=== PATIENT | female | born 1990 | race Caucasian/White ===

== ENCOUNTER → 2023-05-31 14:24 | Outpatient (CLI) | payer OTHER, MEDICAID, SELFPAY ==
[2023-05-31 16:08] LABS: Add Manual Diff / Slide Review NO; Basophils Absolute Auto 100 /uL (0-100); Basophils Percent Auto 0.7 % (0-2); Eosinophils Absolute Auto 300 /uL (0-450); Eosinophils Percent Auto 3.6 % (2-4); Hematocrit 35.1 % (36-46); Lymphocytes Absolute Auto 2600 /uL (1100-4500); Lymphocytes Percent Auto 29.9 % (25-40); Mean Corpuscular HGB Conc 31.2 % (30-36); Mean Corpuscular Hemoglobin 21.4 PG (26-34); Mean Corpuscular Volume 68.4 fL (80-100); Monocytes Absolute Auto 700 /uL (0-900); Monocytes Percent Auto 7.7 % (3-14); Neutrophils Absolute Auto 5000 /uL (1500-7000); Neutrophils Percent Auto 58.1 % (50-75); Platelet Count 369 X10^3/uL (150-400); Red Blood Cell Count 5.14 X10^6/uL (4.0-5.2); Red Cell Distribution Width 18.4 % (11.6-14.8); White Blood Cell Count 8.7 X10^3/uL (4.5-11.0)
[2023-05-31 16:37] LABS: Alanine Aminotransferase 21 IU/L (<35); Albumin Globulin Ratio 1.1 (1.0-2.8); Alkaline Phosphatase 77 U/L (38-126); Aspartate Aminotransferase 27 IU/L (14-36); BUN Creatinine Ratio 12.9 (6-22); Bilirubin Total 0.6 mg/dL (0.2-1.3); Blood Urea Nitrogen 11 mg/dL (7-17); Calcium 8.8 mg/dL (8.4-10.2); Carbon Dioxide 20 mmol/L (22-32); Chloride 108 mmol/L (98-107); Estimated Glomerular Filt Rate > 60 mL/min (>60); Globulin 3.8 g/dL (1.7-4.1); Glucose 84 mg/dL (70-100); HEMOLYSIS < 15 (0-50); Potassium 3.8 mmol/L (3.4-5.1); Sodium 140 mmol/L (137-145); Total Protein 7.8 g/dL (6.3-8.2)
[2023-05-31 16:51] LABS: Anisocytosis 2+; Macrocytosis 1+; Microcytosis 2+
[2023-05-31 16:52] LABS: Hypochromasia 1+; Rouleaux 1+
[2023-05-31 16:53] LABS: Vitamin D 25 Hydroxy (D3) 32.4 ng/mL (30.0-100.0)
[2023-05-31 17:17] LABS: TSH w/ Reflex to FT4 0.91 uIU/mL (0.47-4.68)
[2023-06-01 12:31] LABS: HEMOLYSIS < 15 (0-50); Iron 41 ug/dL (37-170)
[2023-06-01 12:42] LABS: Percent Iron Saturation 10 % (15-50); Total Iron Binding Capacity 423 ug/dL (265-497); Transferrin 342 mg/dL (206-381)
[2023-06-01 13:39] LABS: Folate 8.9 ng/mL (2.76-20.0); Vitamin B12 403 pg/mL (239-931)
== END ==
PROVIDERS: PCP Family Medicine; Referring Provider Family Medicine; Visit Provider Family Medicine
DX: F32.A Depression, unspecified (principal)
CPT/HCPCS: 36415; 80053; 82306; 82607; 82746; 83540; 83550; 84443; 85025

== ENCOUNTER → 2023-07-27 14:16 | Outpatient (CLI) | payer OTHER, MEDICAID, SELFPAY ==
[2023-07-27 15:11] LABS: Hematocrit 37.6 % (36-46); Hemoglobin 12.3 g/dL (12.0-16.0); Mean Corpuscular HGB Conc 32.8 % (30-36); Mean Corpuscular Hemoglobin 24.8 PG (26-34); Mean Corpuscular Volume 75.6 fL (80-100); Platelet Count 313 X10^3/uL (150-400); Red Blood Cell Count 4.97 X10^6/uL (4.0-5.2); Red Cell Distribution Width 20.2 % (11.6-14.8); White Blood Cell Count 10.4 X10^3/uL (4.5-11.0)
[2023-07-27 15:28] LABS: Neutrophils Absolute Manual 5824 /uL (3000-5900); Total Cells Counted 100
[2023-07-27 15:29] LABS: Anisocytosis 1+; Microcytosis 1+
[2023-07-27 15:33] LABS: HEMOLYSIS < 15 (0-50); Iron 102 ug/dL (37-170)
[2023-07-27 15:47] LABS: Percent Iron Saturation 28 % (15-50); Total Iron Binding Capacity 363 ug/dL (265-497); Transferrin 273 mg/dL (206-381)
[2023-07-27 16:08] LABS: Ferritin 24 ng/mL (6-137)
[2023-07-28 16:55] LABS: HIV 1 & 2 Ab/Ag 4th Gen Combo NEGATIVE (NEGATIVE); Hep C Virus Ab w/Reflex Quant NEGATIVE s/c (NEGATIVE)
[2023-07-30 07:04] LABS: Hepatitis B Virus HBV DNA not detected IU/mL (.)
== END ==
PROVIDERS: PCP Family Medicine; Referring Provider Family Medicine; Visit Provider Family Medicine
DX: Z13.1 Encounter for screening for diabetes mellitus (principal); Z11.3 Encounter for screening for infections with a predominantly sexual mode of transmission; D64.9 Anemia, unspecified; Z83.3 Family history of diabetes mellitus; Z79.899 Other long term (current) drug therapy
CPT/HCPCS: 36415; 82728; 83036; 83540; 83550; 85025; 86803; 87389

== ENCOUNTER 2023-08-21 22:02 | Emergency (ER) | payer OTHER, MEDICAID, SELFPAY ==
[2023-08-21 22:15] VITALS: BP 149/95; PULSE 100; RESP 18; TEMP 36.8; O2SAT 96; BMI 38.3
--- NOTE | 2023-08-21 22:22 | DI.RAD.S_ITS ---
PROCEDURE: XR TIBIA FUBULA RT 2V INDICATIONS: injury to right lower leg TECHNIQUE: 2 views of the tibia and fibula were acquired. COMPARISON: None. FINDINGS: Bones: No fractures or dislocations. No suspicious bony lesions. Soft tissues: No suspicious soft tissue calcifications or masses. IMPRESSION: No acute bony abnormality. MRI could be considered for follow-up evaluation. Dictated by: Vasyl Coto M.D. on 08/21/2023 at 23:19 Approved by: Vasyl Coto M.D. on 08/21/2023 at 23:20
--- NOTE | 2023-08-22 05:27 | ED.LOWEXIN ---
HPI - Extremity Injury (Lower) General Chief Complaint: Extremity Injury, Lower Stated Complaint: swollen rt calf inj Source: patient Mode of arrival: Ambulatory History of Present Illness HPI Narrative: (Patient left without seeing further) Related Data Previous Rx's Medication Instructions Recorded hydroxyzine HCl 10 mg tablet 10 mg PO BEDTIME #30 tabs 05/31/23 hydroxyzine HCl 25 mg tablet 25 mg PO BEDTIME #30 tabs 05/31/23 sertraline 50 mg tablet 50 mg PO DAILY #30 tabs 07/27/23 trazodone 50 mg tablet 50 mg PO BEDTIME #90 tabs 08/21/23 Allergies Allergy/AdvReac Type Severity Reaction Status Date / Time No Known Drug Allergies Allergy Verified 07/27/23 13:32 Patient History Medical History (Updated 08/22/23 @ 02:38 by Lidia Oviedo RN) Routine screening for STI (sexually transmitted infection) Insomnia Anemia Social anxiety disorder Surgical History (Updated 03/14/23 @ 12:10 by Suzan Boyer MD) H/O eye surgery Social History marital status: unmarried,single lives independently: Yes housing: apartment pets and animals: Yes occupational status: employed Previous occupational history: works in [employer] in [place] sexual history: 1 partner leisure activities: other other: walking Smoking Status: Current every day smoker Smoking Status: Current every day smoker alcohol intake frequency: holidays/special occasions only Substance Use Type: marijuana Exam Initial Vital Signs Initial Vital Signs: Vital Signs Temperature 98.2 F 08/21/23 22:15 Pulse Rate 100 H 08/21/23 22:15 Respiratory Rate 18 08/21/23 22:15 Blood Pressure 149/95 H 08/21/23 22:15 Pulse Oximetry 96 08/21/23 22:15 Oxygen Delivery Method Room Air 08/21/23 22:15 Course Orders Ordered: ED Orders 08/21/23 22:22 XR tibia fibula RT 2V Stat Vital Signs Vital signs: Vital Signs - 8 hr 08/21/23 22:15 Temperature 98.2 F Pulse Rate 100 H Respiratory Rate 18 Blood Pressure 149/95 H Pulse Oximetry 96 Oxygen Delivery Method Room Air Discharge Plan Departure Patient Disposition: Left Without Being Seen Clinical Impression: Patient left without being seen Prescriptions: No Action hydroxyzine HCl 25 mg tablet 25 mg PO BEDTIME Qty: 30 1RF hydroxyzine HCl 10 mg tablet 10 mg PO BEDTIME Qty: 30 1RF Rx Instructions: take with 25 mg sertraline 50 mg tablet 50 mg PO DAILY Qty: 30 0RF trazodone 50 mg tablet 50 mg PO BEDTIME Qty: 90 3RF
== END 2023-08-22 02:25 | disposition left against medical advice (07) ==
PROVIDERS: Emergency Provider Emergency Medicine; PCP Family Medicine
DX: M79.604 Pain in right leg (principal); X58.XXXA Exposure to other specified factors, initial encounter
CPT/HCPCS: 73590; 99281

== ENCOUNTER 2025-01-19 20:08 | Emergency (ER) | payer OTHER, SELFPAY ==
[2025-01-19 20:15] VITALS: BP 134/87; PULSE 127; RESP 19; TEMP 36.3; O2SAT 100; BMI 40.1
--- NOTE | 2025-01-19 20:18 | EKG_ITS ---
[address] [address] Test Date: 2025-01-19 Pat Name: Maria Del Carmen Arteaga Department: [facility] Room: Gender: Female [employer] Worker [employer]: JUAN JOSE VIERA : 1990 Requested By: Order Number: [id number] Reading MD: Saúl Thurman MD Measurements Intervals [place] Rate: 133 P: 38 AK: 124 QRS: 17 QRSD: 74 T: 40 QT: 294 QTc: 437 Interpretive Statements Sinus tachycardia Electronically Signed On 01-21-2025 7:48:33 PDT by Saúl Thurman MD
--- NOTE | 2025-01-19 20:20 | DI.RAD.S_ITS ---
PROCEDURE: XR CHEST 1V INDICATIONS: Chest Pain TECHNIQUE: One view of the chest was acquired. COMPARISON: None. FINDINGS: Surgical changes and devices: None. Lungs and pleura: Lungs are clear. No pleural effusions or pneumothorax. Mediastinum: Mediastinal contours appear normal. Heart size is normal. Bones and chest wall: No suspicious bony lesions. Overlying soft tissues appear unremarkable. IMPRESSION: No acute cardiopulmonary pathology. Dictated by: Lew Keen M.D. on 01/19/2025 at 20:45 Approved by: Lew Keen M.D. on 01/19/2025 at 20:45
[2025-01-19 20:51] LABS: INR 1.0 (0.9-1.3); Prothrombin Time 11.3 SECONDS (9.4-12.5)
[2025-01-19 20:54] LABS: Add Manual Diff / Slide Review NO; Hematocrit 45.1 % (36-46); Hemoglobin 15.3 g/dL (12.0-16.0); Lymphocytes Absolute Auto 2500 /uL (1100-4500); Mean Corpuscular HGB Conc 33.9 % (30-36); Mean Corpuscular Hemoglobin 27.5 PG (26-34); Mean Corpuscular Volume 81.1 fL (80-100); PTT Partial Thromboplastin Tim 30 SECONDS (25.1-36.5); Platelet Count 321 X10^3/uL (150-400)
[2025-01-19 20:57] LABS: Alanine Aminotransferase 38 IU/L (<35); Albumin 4.6 g/dL (3.5-5.0); Albumin Globulin Ratio 1.2 (1.0-2.8); Alkaline Phosphatase 109 U/L (38-126); Blood Urea Nitrogen 16 mg/dL (7-17); Calcium 9.3 mg/dL (8.4-10.2); Carbon Dioxide 23 mmol/L (22-32); Chloride 108 mmol/L (98-107); Creatine Kinase 1305 U/L (30-135); Estimated Glomerular Filt Rate > 60 mL/min (>60); Globulin 3.9 g/dL (1.7-4.1); Glucose 110 mg/dL (70-99); HEMOLYSIS 26 (0-50); Lipase 186 U/L (23-300); Magnesium 1.9 mg/dL (1.6-2.3); Potassium 4.1 mmol/L (3.4-5.1); Sodium 139 mmol/L (137-145); Total Protein 8.5 g/dL (6.3-8.2)
[2025-01-19 21:08] LABS: NT-proBNP (BNP-Adult 18+) < 20 pg/mL (<125); Troponin I < 0.012 ng/mL (0.01-0.034)
[2025-01-19 21:32] VITALS: BP 136/79; PULSE 90; RESP 12; O2SAT 100
--- NOTE | 2025-01-19 21:32 | ED.CHESTPAIN ---
HPI - Chest Pain General Chief Complaint: Chest Pain Stated Complaint: chest pain Time Seen by Provider: 01/19/25 21:30 Source: patient Mode of arrival: Ambulatory Limitations: no limitations History of Present Illness HPI narrative: 34-year-old female with no cardiac history presents with left-sided pressure pain around her chest and the midsternal area that started around 17 30 at work and stayed there for about 2-3 hours. She says it comes in waves. She denies any shortness of breath at this time. Currently the patient's pain is approximately 4/10 and the patient refuses any pain medications. She does have a history of hypertension and anxiety which she takes venlafaxine for and lisinopril. Patient is also on some gabapentin for her fibromyalgia. Related Data Previous Rx's ?Medication ?Instructions ?Recorded venlafaxine 75 mg capsule,extended 75 mg PO DAILY #90 caps 07/02/24 release 24 hr epinephrine 0.3 mg/0.3 mL 0.3 mg (0.3 mL) IM Q5-15M PRN 08/08/24 injection, auto-injector (EpiPen anaphylaxis #2 ea 2-Virgilio) human papillomav vac,9-roger(PF) 0.5 0.5 ml IM ONCE #5 mL 08/08/24 mL IM suspension (Gardasil 9 (PF)) fluticasone propionate 50 2 spray intranasal DAILY #16 grams 09/26/24 mcg/actuation nasal spray,suspension (Flonase Allergy Relief) lisinopril 20 mg tablet 20 mg PO DAILY #90 tabs 12/03/24 lisinopril 5 mg tablet 5 mg PO DAILY #90 tabs 12/19/24 venlafaxine 37.5 mg 37.5 mg PO DAILY #90 caps 01/16/25 capsule,extended release 24 hr Allergies Allergy/AdvReac Type Severity Reaction Status Date / Time Milk Containing Products AdvReac Mild unknown Verified 01/19/25 20:15 (Dairy) pork derived (porcine) AdvReac Mild unknown Verified 01/19/25 20:15 Review of Systems Review of Systems ROS Unobtainable: All systems reviewed & are unremarkable except as noted in HPI and below Patient History Medical History (Updated 01/19/25 @ 23:35 by Pipo Murphy MD) Allergies Frequent headaches Multiple food allergies Hypertension Positive test for human papillomavirus (HPV) Routine screening for STI (sexually transmitted infection) Insomnia Anemia Social anxiety disorder Surgical History (Updated 03/14/23 @ 12:10 by Suzan Boyer MD) H/O eye surgery Social History marital status: unmarried,single lives independently: Yes housing: apartment pets and animals: Yes occupational status: employed Previous occupational history: works in [employer] in [employer] sexual history: 1 partner leisure activities: other other: walking Smoking Status: Current some day smoker Smoking Status: Current some day smoker alcohol intake frequency: holidays/special occasions only Exam Narrative Exam Narrative: General: Patient appears to be in no acute distress, acting appropriately Head: normocephalic, atraumatic, HEENT: Pupils equal round reactive, eyes tracking well, neck supple, no JVD Heart: regular rate and rhythm, no murmurs, rubs, or gallops heard Lungs: clear to auscultation, no adventitious sounds Abdomen: soft , nontender, nondistended, positive bowel sounds Neurological: no focal neurological signs, moving all extremities well, alert and oriented x3, Psych: good judgment ,good insight, mood is normal. Initial Vital Signs Initial Vital Signs: Vital Signs Temperature 97.4 F L 01/19/25 20:15 Pulse Rate 127 H 01/19/25 20:15 Respiratory Rate 19 01/19/25 20:15 Blood Pressure 134/87 01/19/25 20:15 Pulse Oximetry 100 01/19/25 20:15 Oxygen Delivery Method Room Air 01/19/25 20:15 Scores HEART Score Heart Score history: Slightly Suspicious Heart Score EKG: Normal Heart Score Age: < 45 years old Heart Score risk factors: No known risk factors Heart Score troponin: < or = to normal limit Heart Score Total: 0 Course Orders Ordered: ED Orders 01/19/25 20:11 EKG-12 Lead Stat 01/19/25 20:20 XR chest 1V Stat 01/19/25 20:25 Complete Blood Count AUTO DIFF Stat Comprehensive Metabolic Panel Stat Lipase Stat Magnesium Stat NT-proBNP (BNP-Adult 18+) Stat PTT Partial Thromboplastin Watson Stat Prothrombin Time INR Stat Troponin & CK Cardiac Panel Stat 01/19/25 22:35 Troponin I Stat Discontinued Medications Sodium Chloride (Normal Saline 0.9%) 1,000 mls @ 1,000 mls/hr IV BOLUS ONE Stop: 01/19/25 22:51 Last Infusion: 01/19/25 23:05 Dose: Infused Documented By: Trista Admin: 01/19/25 22:09 Dose: 1,000 mls/hr Documented By: Trista Reevaluation(s) Reevaluation #1: Upon re-evaluation, patient is asymptomatic and eager to be discharged. Her 2nd set of troponins are also negative. Time: 23:33 Vital Signs Vital signs: Vital Signs - 8 hr 01/19/25 20:15 01/19/25 21:32 01/19/25 21:32 Temperature 97.4 F L Pulse Rate 127 H 90 Respiratory Rate 19 12 Blood Pressure 134/87 136/79 Pulse Oximetry 100 100 Oxygen Delivery Method Room Air Room Air 01/19/25 22:00 01/19/25 22:00 01/19/25 22:30 Temperature Pulse Rate 87 Respiratory Rate 23 Blood Pressure 112/71 118/70 Pulse Oximetry 99 Oxygen Delivery Method 01/19/25 22:30 01/19/25 23:00 01/19/25 23:00 Temperature Pulse Rate 86 79 Respiratory Rate 20 24 Blood Pressure 123/70 Pulse Oximetry 100 100 Oxygen Delivery Method Room Air MDM - Chest Pain Lab Data 01/19/25 20:25 01/19/25 20:25 Labs: Lab Results 01/19/25 01/19/25 Range/Units 20:25 22:35 WBC 11.5 H (4.5-11.0) X10^3/uL RBC 5.56 H (4.0-5.2) X10^6/uL Hgb 15.3 (12.0-16.0) g/dL Hct 45.1 (36-46) % MCV 81.1 (80-100) fL MCH 27.5 (26-34) PG MCHC 33.9 (30-36) % RDW 14.4 (11.6-14.8) % Plt Count 321 (150-400) X10^3/uL Neut % (Auto) 71.5 (50-75) % Lymph % (Auto) 22.0 L (25-40) % [place] % (Auto) 4.5 (3-14) % Eos % (Auto) 0.1 L (2-4) % Baso % (Auto) 1.9 (0-2) % Neut # (Auto) 8200 H (3908-0899) /uL Lymph # (Auto) 2500 (3327-6044) /uL [place] # (Auto) 500 (0-900) /uL Eos # (Auto) 0 (0-450) /uL Baso # (Auto) 200 H (0-100) /uL PT 11.3 (9.4-12.5) SECONDS INR 1.0 (0.9-1.3) APTT 30 (25.1-36.5) SECONDS Sodium 139 (137-145) mmol/L Potassium 4.1 (3.4-5.1) mmol/L Chloride 108 H (98-107) mmol/L Carbon Dioxide 23 (22-32) mmol/L BUN 16 (7-17) mg/dL Creatinine 1.09 H (0.52-1.04) mg/dL Estimated GFR > 60 (>60) mL/min BUN/Creatinine Ratio 14.7 (6-22) Glucose 110 H (70-99) mg/dL Calcium 9.3 (8.4-10.2) mg/dL Magnesium 1.9 (1.6-2.3) mg/dL Total Bilirubin 0.3 (0.2-1.3) mg/dL AST 67 H (14-36) IU/L ALT 38 H (<35) IU/L Alkaline Phosphatase 109 (38-126) U/L Total Creatine Kinase 1305 H (30-135) U/L Troponin I < 0.012 < 0.012 (0.01-0.034) ng/mL NT-Pro-B Natriuret Pep < 20 (<125) pg/mL Total Protein 8.5 H (6.3-8.2) g/dL Albumin 4.6 (3.5-5.0) g/dL Globulin 3.9 (1.7-4.1) g/dL Albumin/Globulin Ratio 1.2 (1.0-2.8) Lipase 186 (23-300) U/L Imaging Data Chest x-ray: Radiologist's Impression: No acute cardiopulmonary pathology. ECG Data Interpretation: EKG shows a sinus tachycardia pattern. Normal axis, rate is 133 beats per minute, normal IA intervals no STT wave changes. No previous EKG found for comparison. MDM Narrative Medical decision making narrative: 34-year-old female and a came in with some chest pain that resolved on her own. Patient is no longer symptomatic at this time and is eager to be discharged. Her 2nd set of troponins were also negative. Advised to follow up if her chest pain resumes and worsens. Her heart score is 0. Discharge Plan Departure Patient Disposition: Home Clinical Impression: Atypical chest pain Instructions: DI for Atypical Chest Pain Activity Restrictions/Additional Instructions: Continue to hydrate well as already doing. Advised to follow up if chest pain returns at any point. Prescriptions: No Action venlafaxine 75 mg capsule,extended release 24hr 75 mg PO DAILY Qty: 90 6RF Gardasil 9 (PF) 0.5 mL suspension 0.5 ml IM ONCE Qty: 5 2RF Rx Instructions: as a single dose, repeat dose at 1-2m and 6m from first dose for 3 total doses epinephrine [EpiPen 2-Virgilio] 0.3 mg/0.3 mL auto-injector 0.3 mg IM Q5-15M PRN (Reason: anaphylaxis ) Qty: 2 0RF Rx Instructions: do not exceed 3 doses per episode fluticasone propionate [Flonase Allergy Relief] 50 mcg/actuation spray,suspension 2 spray intranasal DAILY Qty: 16 0RF Rx Instructions: administer into each nostril lisinopril 20 mg tablet 20 mg PO DAILY Qty: 90 0RF lisinopril 5 mg tablet 5 mg PO DAILY Qty: 90 0RF Rx Instructions: to add to 20 mg tab to increase dose to 25mg daily venlafaxine 37.5 mg capsule,extended release 24hr 37.5 mg PO DAILY Qty: 90 0RF Referrals: Bri Barriga MD [Primary Care Provider, Family Practice] Stand Alone Forms: Patient Portal/API
[2025-01-19 22:00] VITALS: BP 112/71; PULSE 87; RESP 23; O2SAT 99
[2025-01-19] MEDS: SODIUM CHLORIDE 0.9% 1,000 ML 1000 ML IV (22:09)
[2025-01-19 22:30] VITALS: BP 118/70; PULSE 86; RESP 20; O2SAT 100
[2025-01-19 23:00] VITALS: BP 123/70; PULSE 79; RESP 24; O2SAT 100
[2025-01-19 23:05] LABS: Troponin I < 0.012 ng/mL (0.01-0.034)
== END 2025-01-19 23:42 | disposition home or self-care (01) ==
PROVIDERS: Emergency Provider Family Medicine; PCP Family Medicine
DX: R07.89 Other chest pain (principal)
CPT/HCPCS: 36415; 71045; 80053; 82550; 83690; 83735; 83880; 84484; 85025; 85610; 85730; 93005; 93010; 96360; 99284; J7030